=== PATIENT | male | born 1960 | race Caucasian/White ===

== ENCOUNTER 2017-06-10 14:30 | Emergency (ER) | payer MEDICAID ==
[~2017-06-10] VITALS: Ht 182.9 cm; Wt 72.6 kg
[2017-06-10] MEDS ORDERED: SODIUM CHLORIDE 0.9% 1,000ML IVBOLUS ONE (15:00)
[2017-06-10] MEDS ORDERED: CHLORDIAZEPOXIDE 25 MG CAPSULE PO PRN (15:00)
[2017-06-10] MEDS ORDERED: SODIUM CHLORIDE FLUSH 10ML SYR IVF ONE (15:00)
[2017-06-10 15:22] LABS: HEMATOCRIT 43.5 % (39.2-51.8); HEMOGLOBIN 14.8 g/dL (13.7-18.0); WHITE BLOOD COUNT 7.7 x10^3/uL (3.4-10)
[2017-06-10 15:37] LABS: ASPARTATE AMINO TRANSFERASE 60 U/L (15-37); BLOOD UREA NITROGEN 23 mg/dL (7-18)
[2017-06-10 15:41] LABS: IS PT STATUS REG ER OR PRE ER? YES
[2017-06-10 17:10] VITALS: BP 127/76
== END 2017-06-10 17:13 | disposition home or self-care (01) ==
LOC: ED 17:02
DX: S22.42XA Multiple fractures of ribs, left side, initial encounter for closed fracture (principal); F10.129 Alcohol abuse with intoxication, unspecified; X58.XXXA Exposure to other specified factors, initial encounter; Y93.89 Activity, other specified; Y99.8 Other external cause status; Y92.89 Other specified places as the place of occurrence of the external cause
CPT/HCPCS: 36415; 71010; 80053; 83880; 84484; 85025; 85610; 85730; 93005; 96360; 96361; 99285; J7030